=== PATIENT | female | born 2000 | race African-American/Black ===

== ENCOUNTER 2025-03-17 16:10 | Emergency (ER) | payer MEDICAID ==
[~2025-03-17] VITALS: Ht 157.5 cm; Wt 59.0 kg
[2025-03-17 16:18] VITALS: O2SAT 100
[2025-03-17 17:10] LABS: CLARITY URINE CLEAR (CLEAR); COLOR URINE YELLOW (YELLOW); GLUCOSE URINE NEGATIVE (NEGATIVE); KETONES URINE 1+ (NEGATIVE); LEUKOCYTE ESTERASE URINE NEGATIVE (NEGATIVE); NITRITE URINE NEGATIVE (NEGATIVE); OCCULT BLOOD URINE NEGATIVE (NEGATIVE); PH URINE 7.5 (4.5-8.0); PROTEIN URINE NEGATIVE (NEGATIVE); SPECIFIC GRAVITY URINE 1.008 (1.005-1.030); UROBILINOGEN URINE 0.2 E.U./dL (0.2-1.0)
[2025-03-17] MEDS: ACETAMINOPHEN 325MG TABLET PO ONE (20:45)
[2025-03-17] MEDS ORDERED: LIDO-53 TP (21:10)
[2025-03-17] MEDS ORDERED: NAPR-1176 MT (21:10)
[2025-03-17] MEDS ORDERED: CEPH500C2 MT (21:10)
[2025-03-17 21:25] VITALS: BP 109/55; PULSE 90; RESP 16; TEMP 36.8; O2SAT 99
== END 2025-03-17 21:28 | disposition home or self-care (01) ==
LOC: ER 16:10
DX: N39.0 Urinary tract infection, site not specified (principal); Z79.899 Other long term (current) drug therapy
CPT/HCPCS: 81003; 81025; 99283